=== PATIENT | male | born 1935 | race Caucasian/White ===

== ENCOUNTER 2022-10-30 16:13 | Inpatient (IN) | payer BC ==
[~2022-10-30] VITALS: Ht 182.9 cm; Wt 89.8 kg
[2022-10-30 17:03] LABS: BASOPHILS % (AUTO) 0.9 % (0.0-2.0); EOSINOPHILS % (AUTO) 5.4 % (0.0-6.0); HEMATOCRIT 36 % (39-51); LYMPHOCYTES # (AUTO) 1.1 K/uL (0.8-4.8); LYMPHOCYTES % (AUTO) 19.5 % (20.0-44.0); MEAN CORPUSCULAR HGB CONC 33 g/dl (31.0-36.0); MEAN CORPUSCULAR VOLUME 103 fL (80-96); MONOCYTES # (AUTO) 0.6 K/uL (0.1-1.30); MONOCYTES % (AUTO) 11.4 % (2.0-12.0); NEUTROPHILS # (AUTO) 3.5 K/uL (1.8-8.9); NEUTROPHILS % (AUTO) 62.8 % (43.0-81.0); PLATELET COUNT (AUTO) 172 K/uL (150-450); RED BLOOD CELL COUNT(AUTO) 3.53 MIL/uL (4.5-6.0); WHITE BLOOD COUNT (AUTO) 5.6 K/uL (4.3-11.0)
[2022-10-30] MEDS ORDERED: CHOL100043 PO (17:18)
[2022-10-30] MEDS ORDERED: VITAMIN E PO (17:18)
[2022-10-30] MEDS ORDERED: LEVO75TA7 PO (17:18)
[2022-10-30] MEDS ORDERED: CARV12.52 PO (17:18)
[2022-10-30] MEDS ORDERED: FLUT16SP BNOSTRILS (17:18)
[2022-10-30] MEDS ORDERED: TORS10TA17 PO (17:18)
[2022-10-30] MEDS ORDERED: DABI75CA3 PO (17:18)
[2022-10-30] MEDS ORDERED: SPIR25TA6 PO (17:18)
[2022-10-30] MEDS ORDERED: COLC0.6C3 PO (17:18)
[2022-10-30] MEDS ORDERED: OLME5TAB6 PO (17:18)
[2022-10-30] MEDS ORDERED: ALLO300T2 PO (17:18)
[2022-10-30 17:22] LABS: CALCIUM, SERUM 9.5 mg/dL (8.5-10.1); CARBON DIOXIDE 22 mmol/L (21-32); CHLORIDE 105 mmol/L (98-107); CREATININE 2.5 mg/dL (0.6-1.3); GLUCOSE 100 mg/dL (74-106); POTASSIUM 4.3 mmol/L (3.5-5.1); SODIUM SERUM 139 mmol/L (136-145); UREA NITROGEN, BLOOD 64 mg/dL (7-18)
[2022-10-30 17:27] LABS: ALANINE AMINOTRANSFERASE 18 U/L (12-78); ALBUMIN 3.5 g/dL (3.4-5.0); ALKALINE PHOSPHATASE 106 U/L (46-116); ASPARTATE AMINOTRANSFERASE 16 U/L (15-37); BILIRUBIN,DIRECT 0.2 mg/dL (0.0-0.2); BILIRUBIN,TOTAL 0.6 mg/dL (0.2-1.0); LIPASE 35 U/L (73-393); TOTAL PROTEIN, SERUM 6.5 g/dL (6.4-8.2)
[2022-10-30] MEDS ORDERED: IV NS 0.9% 1,000 ML BAG IV ONE (17:30)
[2022-10-30] MEDS ORDERED: ASPIRIN 325 MG TABLET PO ONE (17:30)
[2022-10-30] MEDS ORDERED: ASPIRIN 325 MG TABLET ONE (17:39)
[2022-10-30 18:32] LABS: EOSINOPHILS % (MANUAL) 4 % (0-4); LYMPHOCYTES % (MANUAL) 20 % (16-48); MONOCYTES % (MANUAL) 16 % (0-11.0); NEUTROPHILS % (MANUAL) 60 (42-76)
[2022-10-30 20:29] LABS: BILIRUBIN,URINE NEGATIVE (NEGATIVE); COLOR,URINE YELLOW (YELLOW); LEUKOCYTE ESTERASE ,URINE NEGATIVE (NEGATIVE); NITRITE, URINE NEGATIVE (NEGATIVE); PH,URINE 5.5 (5.0-8.0); PROTEIN,URINE NEGATIVE (NEGATIVE); UGLUCOSE NEGATIVE (NEGATIVE); UROBILINOGEN,URINE 0.2 EU/dL (0.2)
[2022-10-30 20:40] VITALS: BP 129/72; TEMP 97.4; O2SAT 98
[2022-10-31] VITALS: BP 122/52; TEMP 97.4; O2SAT 97
[2022-10-31 04:00] VITALS: BP 96/78; TEMP 97.5; O2SAT 97
[2022-10-31 04:01] VITALS: BP 138/77; TEMP 97.5; O2SAT 99
[2022-10-31 04:02] VITALS: BP 130/66; TEMP 97.5; O2SAT 100
[2022-10-31 05:46] LABS: BASOPHILS % (AUTO) 0.5 % (0.0-2.0); EOSINOPHILS % (AUTO) 7.7 % (0.0-6.0); HEMATOCRIT 36 % (39-51); HEMOGLOBIN 11.8 g/dL (13.5-17.5); LYMPHOCYTES % (AUTO) 22.7 % (20.0-44.0); MEAN CORPUSCULAR HGB CONC 33 g/dl (31.0-36.0); MEAN CORPUSCULAR VOLUME 103 fL (80-96); MONOCYTES # (AUTO) 0.4 K/uL (0.1-1.30); NEUTROPHILS # (AUTO) 2.8 K/uL (1.8-8.9); NEUTROPHILS % (AUTO) 61.1 % (43.0-81.0); PLATELET COUNT (AUTO) 161 K/uL (150-450); RED BLOOD CELL COUNT(AUTO) 3.49 MIL/uL (4.5-6.0); WHITE BLOOD COUNT (AUTO) 4.5 K/uL (4.3-11.0)
[2022-10-31 05:56] LABS: CALCIUM, SERUM 9.2 mg/dL (8.5-10.1); CARBON DIOXIDE 22 mmol/L (21-32); CHLORIDE 108 mmol/L (98-107); CREATININE 2.2 mg/dL (0.6-1.3); GLUCOSE 115 mg/dL (74-106); POTASSIUM 4.1 mmol/L (3.5-5.1); SODIUM SERUM 139 mmol/L (136-145); UREA NITROGEN, BLOOD 57 mg/dL (7-18)
[2022-10-31 06:01] LABS: ALANINE AMINOTRANSFERASE 17 U/L (12-78); ALBUMIN 3.1 g/dL (3.4-5.0); ALKALINE PHOSPHATASE 96 U/L (46-116); ASPARTATE AMINOTRANSFERASE 16 U/L (15-37); BILIRUBIN,TOTAL 0.7 mg/dL (0.2-1.0); MAGNESIUM 2.1 mg/dL (1.8-2.4); TOTAL PROTEIN, SERUM 5.8 g/dL (6.4-8.2)
[2022-10-31 06:11] LABS: EOSINOPHILS % (MANUAL) 10 % (0-4); LYMPHOCYTES % (MANUAL) 26 % (16-48); MONOCYTES % (MANUAL) 9 % (0-11.0); NEUTROPHILS % (MANUAL) 55 (42-76)
[2022-10-31] MEDS ORDERED: LEVOTHYROXINE SODIUM 75 MCG TABLET PO SCH (07:30)
[2022-10-31 08:00] VITALS: BP 134/83; TEMP 97.6; O2SAT 99
[2022-10-31 08:21] LABS: CHOLESTEROL 125 mg/dL (<200); HDL CHOLESTEROL 54 mg/dL (40-60); LDL 62 mg/dL (0-99); THYROID STIMULATING HORMONE 1.886 uIU/mL (0.358-3.74); TRIGLYCERIDES 56 mg/dL (30-150)
[2022-10-31] MEDS ORDERED: LOSARTAN POTASSIUM 25 MG TABLET PO SCH (09:00)
[2022-10-31] MEDS ORDERED: DABIGATRAN ETEXILATE MESYLATE 75 MG CAPSULE PO SCH (09:00)
[2022-10-31] MEDS ORDERED: ASPIRIN EC 325 MG TABLET.DR PO SCH (09:00)
[2022-10-31] MEDS ORDERED: CARVEDILOL 12.5 MG TABLET PO SCH (09:00)
[2022-10-31] MEDS ORDERED: PANTOPRAZOLE 40 MG VIAL IV SCH (09:00)
[2022-10-31] MEDS ORDERED: ATOR40TA PO (11:06)
[2022-10-31] MEDS ORDERED: ASPI-1420 PO (11:06)
[2022-10-31 12:00] VITALS: BP 118/68; TEMP 98.1; O2SAT 98
== END 2022-10-31 12:19 | disposition home or self-care (01) | DRG 69 ==
LOC: ER 16:14 → TELE1 20:21
PROVIDERS: ADMIT Nurse Practitioner Acute Care; ATTEND Internal Medicine
DX: G45.9 Transient cerebral ischemic attack, unspecified (principal); T67.01XA Heatstroke and sunstroke, initial encounter; I13.0 Hypertensive heart and chronic kidney disease with heart failure and stage 1 through stage 4 chronic kidney disease, or unspecified chronic kidney disease; E86.0 Dehydration; I48.91 Unspecified atrial fibrillation; N18.9 Chronic kidney disease, unspecified; E03.9 Hypothyroidism, unspecified; D53.9 Nutritional anemia, unspecified; E78.5 Hyperlipidemia, unspecified; I50.9 Heart failure, unspecified; Z79.01 Long term (current) use of anticoagulants; Z79.82 Long term (current) use of aspirin; Z79.899 Other long term (current) drug therapy; X58.XXXA Exposure to other specified factors, initial encounter; Y93.9 Activity, unspecified; Y92.89 Other specified places as the place of occurrence of the external cause; R53.1 Weakness; R29.700 NIHSS score 0
CPT/HCPCS: 36415; 70450-TC; 71045-TC; 76770-TC; 80048-TC; 80053-TC; 80061-TC; 80076-TC; 82607-TC; 82962-TC; 83690-TC; 83735-TC; 83880; 84443-TC; 84484-TC; 85025-TC; 85652-TC; 85730-TC; 87086-TC; 93307-TC; 93880-TC; 97110-TC; 97116-TC; 97530-TC; C9113; G0378

== ENCOUNTER 2023-07-13 17:53 | Emergency (ER) | payer BC ==
[~2023-07-13] VITALS: Ht 180.3 cm; Wt 90.3 kg
[~2023-07-13 17:53] MED LIST: ALLO300T2 PO; ASPI-1420 PO; ATOR40TA PO; CARV12.52 PO; CHOL100043 PO; COLC0.6C3 PO; DABI75CA3 PO; FLUT16SP BNOSTRILS; LEVO75TA7 PO; OLME5TAB6 PO; SPIR25TA6 PO; TORS10TA17 PO; VITAMIN E PO
[2023-07-13 18:04] VITALS: TEMP 97.8
[2023-07-13 18:41] LABS: BASOPHILS # (AUTO) 0.1 K/uL (0.0-0.2); BASOPHILS % (AUTO) 0.6 % (0.0-2.0); EOSINOPHILS # (AUTO) 0.3 K/uL (0.0-0.7); EOSINOPHILS % (AUTO) 2.4 % (0.0-6.0); HEMATOCRIT 43 % (39-51); HEMOGLOBIN 14.2 g/dL (13.5-17.5); LYMPHOCYTES # (AUTO) 1.6 K/uL (0.8-4.8); MEAN CORPUSCULAR HEMOGLOBIN 33 PG (26.0-33.0); MEAN CORPUSCULAR HGB CONC 33 g/dl (31.0-36.0); MEAN CORPUSCULAR VOLUME 100 fL (80-96); MONOCYTES # (AUTO) 0.8 K/uL (0.1-1.30); MONOCYTES % (AUTO) 7.3 % (2.0-12.0); NEUTROPHILS # (AUTO) 8.7 K/uL (1.8-8.9); NEUTROPHILS % (AUTO) 75.7 % (43.0-81.0); PLATELET COUNT (AUTO) 226 K/uL (150-450); RED BLOOD CELL COUNT(AUTO) 4.29 MIL/uL (4.5-6.0); RED CELL DISTRIBUTION WIDTH 16.4 % (11.5-15.0); WHITE BLOOD COUNT (AUTO) 11.5 K/uL (4.3-11.0)
[2023-07-13 19:07] LABS: CARBON DIOXIDE 22 mmol/L (21-32); CHLORIDE 103 mmol/L (98-107); GLUCOSE 117 mg/dL (74-106); SODIUM SERUM 140 mmol/L (136-145); UREA NITROGEN, BLOOD 66 mg/dL (7-18)
[2023-07-13 19:12] LABS: NT-PRO BNP 732 pg/mL (0-125)
[2023-07-13 19:40] LABS: ANISOCYTOSIS 1+; BAND % (MANUAL) 1 % (0.0-5.0); EOSINOPHILS % (MANUAL) 2 % (0-4); LYMPHOCYTES % (MANUAL) 16 % (16-48); MONOCYTES % (MANUAL) 8 % (0-11.0); NEUTROPHILS % (MANUAL) 73 (42-76); PLATELET ESTIMATE ADEQU
[2023-07-13] MEDS ORDERED: GUAI1TBM19 PO (21:24)
[2023-07-13 22:11] VITALS: BP 138/64; O2SAT 97
== END 2023-07-13 22:12 | disposition home or self-care (01) ==
LOC: ER 17:53
DX: R05.9 Cough, unspecified (principal); R09.81 Nasal congestion; I48.91 Unspecified atrial fibrillation; Z79.899 Other long term (current) drug therapy; Z79.82 Long term (current) use of aspirin
CPT/HCPCS: 36415; 71045-TC; 80048-TC; 83880; 84484-TC; 85025-TC